=== PATIENT | female | born 1960 | race Asian ===

== ENCOUNTER 2020-01-06 08:23 | Outpatient (CLI) | payer BC, SELFPAY ==
--- NOTE | ~2020-01-06 | MM_ITS ---
EXAMINATION: MM screening [facility] BI w kristian HISTORY: Screening mammogram TECHNIQUE: Craniocaudal and mediolateral oblique 3-D tomosynthesis images were obtained and synthetic 2-D images were generated. CAD analysis was submitted and interpreted. COMPARISON: Comparison to multiple prior studies sequentially, with oldest reviewed study dated 05/15. BREAST PARENCHYMAL COMPOSITION: There are scattered areas of fibroglandular density. FINDINGS: There is no evidence of suspicious mass, calcification, or architectural distortion to sugg est malignancy in either breast. There has been no suspicious interval change. IMPRESSION: 1. No mammographic evidence of malignancy. 2. Recommend routine screening mammography in one year. BI-RADS Category 1: Negative Reviewed, dictated and finalized at location A.
== END 2020-01-06 08:24 | disposition home or self-care (01) ==
LOC: ANHIMG 08:25
PROVIDERS: PCP Family Medicine; Visit Provider Family Medicine
DX: Z12.31 Encounter for screening mammogram for malignant neoplasm of breast (principal)
CPT/HCPCS: 77063; 77067

== ENCOUNTER → 2020-12-15 01:26 | Outpatient (CLI) | payer BC, SELFPAY ==
[2020-12-15 19:42] LABS: SARS-CoV-2 RNA PCR Negative
== END ==
PROVIDERS: PCP Family Medicine; Visit Provider Internal Medicine Gastroenterology
DX: Z01.812 Encounter for preprocedural laboratory examination (principal); Z20.822 Contact with and (suspected) exposure to COVID-19
CPT/HCPCS: C9803; U0003; U0005

== ENCOUNTER 2020-12-18 02:39 | Day surgery (SDC) | payer BC, SELFPAY ==
[2020-12-04 13:14] VITALS: BMI 22.4
[2020-12-18 07:12] VITALS: BP 151/68; PULSE 80; RESP 20; TEMP 36.8; O2SAT 100
[2020-12-18] MEDS: LACTATED RINGERS 1,000 ML 150 ML IV CONT (07:21)
--- NOTE | 2020-12-18 08:03 | WPDANESEPPF ---
Anes - Initial Pre Proc Eval Procedure: Operation Date: 12/18/20 08:30 Proposed Procedures p Screening Colonoscopy - Abhishek Berg MD Date/Time: 12/18/20 08:03 Surgeon: Abhishek Berg MD Pre Op Diagnosis: neoplasm screening Patient Data Age: 59 Gender: F Height: 5 ft 5 in Weight: 63.4 kg Last Vital Signs Temp 98.2 F 12/18/20 07:12 Pulse 80 12/18/20 07:12 Resp 20 12/18/20 07:12 BP 151/68 H 12/18/20 07:12 Pulse Ox 100 12/18/20 07:12 Allergies Allergy/AdvReac Type Severity Reaction Status Date / Time erythromycin base Allergy Severe Hives Verified 12/18/20 07:10 Penicillins Allergy Severe Hives Verified 12/18/20 07:10 ranitidine Allergy Severe swollen Verified 12/18/20 07:10 lips Sulfa (Sulfonamide Allergy Severe Hives Verified 12/18/20 07:10 Antibiotics) aspirin Allergy Intermediate Skin Verified 12/18/20 07:10 Reaction Home Medications Medication Instructions Recorded Confirmed Type hydrochlorothiazide 12.5 mg tablet 12.5 mg PO DAILY #90 tablet 06/28/20 12/18/20 Rx sodium,potassium,mag sulfates 17.5 See Rx Instructions PO .COMPLEX 11/27/20 12/18/20 Rx gram-3.13 gram-1.6 gram oral soln #354 ml atorvastatin 20 mg PO DAILY 12/04/20 12/18/20 History calcium carbonate-vitamin D3 1 tablet PO DAILY 12/04/20 12/18/20 History [Caltrate with Vitamin D3] cholecalciferol (vitamin D3) 25 mcg PO DAILY 12/04/20 12/18/20 History [Vitamin D3] lisinopril 40 mg PO DAILY 12/04/20 12/18/20 History omega-3 fatty acids-vitamin E 2 cap PO DAILY 12/04/20 12/18/20 History [Fish Oil] Patient hx anesthesia problems: none Family hx anesthesia problems: none PMFSH Past Medical History Medical History (Updated 12/18/20 @ 08:03 by Jewel Fink MD) Hyperlipidemia Hypertension Surgical History Surgical History H/O hemorrhoidectomy H/O: hysterectomy History of esophagogastroduodenoscopy (EGD) History of hemicolectomy Family History Family History Other No family history of cardiovascular disease No family history of malignant neoplasm Social History Social History Smoking status: Never smoker Alcohol intake: never Substance use: never Substance use type: does not use Living arrangements: with family Spiritual care concerns: No Anes - Eval Final PreProcedure Day of Procedure 12/18/20 08:03 Patient weight: normal Heart: regular rate and rhythm Lungs: clear to auscultation Airway: Mallampati scale class II Neurological: alert and oriented Last oral intake: >/= 8 hours ASA classification: II Emergent: no Anesthetic plan: proceed Anesthesia type and monitoring: general GIVS and standard monitoring Informed Consent: The patient's anesthetic plan and its attendant risks and benefits were discussed with the patient/family/POA. Questions were solicited and answers provided to the satisfaction of the patient/family/POA.
--- NOTE | 2020-12-18 08:07 | PM.HPGS ---
History of Present Illness History of Present Illness Consent: Risks, benefits, and alternatives have been discussed and questions answered. Patient agrees to proceed with procedure. Chief complaint: neoplasm screening Narrative: Ruy Reed is a 59 year old female with last colonoscopy 2013, had polyp previously Review of Systems Constitutional: Constitutional: Denies headache(s) and Denies weakness Eyes: Eyes: Denies blurry vision ENT: Reports Normal hearing present, Denies headache(s) and Denies neck pain Cardiovascular: Cardiovascular: Denies chest pain and Denies dyspnea Respiratory: Respiratory: Denies dyspnea Gastrointestinal: Gastrointestinal: Reports no additional gastrointestinal complaints Genitourinary: Genitourinary: Denies dysuria Musculoskeletal: Musculoskeletal: Denies neck pain Integumentary/Breasts: Skin/Breast: Denies dry skin Neurologic: Reports Normal hearing present, Denies headache(s) and Denies weakness Psychiatric: Psychiatric: Denies anxiety Endocrine: Endocrine: Denies change in body appearance Hematologic/Lymphatic: Hematologic/Lymphatic: Denies easy bleeding Allergic/Immunologic: Allergic/Immunologic: Denies urticaria PMF Past Medical History Medical History (Updated 12/18/20 @ 08:08 by Abhishek Berg MD) Adenomatous colon polyp Hyperlipidemia Hypertension Surgical History Surgical History H/O hemorrhoidectomy H/O: hysterectomy History of esophagogastroduodenoscopy (EGD) History of hemicolectomy Family History Family History Other No family history of cardiovascular disease No family history of malignant neoplasm Social History Social History Smoking status: Never smoker Alcohol intake: never Substance use: never Substance use type: does not use Living arrangements: with family Spiritual care concerns: No Meds Home Medications and Allergies Home Medications Medication Instructions Recorded Confirmed Type hydrochlorothiazide 12.5 mg tablet 12.5 mg PO DAILY #90 tablet 06/28/20 12/18/20 Rx sodium,potassium,mag sulfates 17.5 See Rx Instructions PO .COMPLEX 11/27/20 12/18/20 Rx gram-3.13 gram-1.6 gram oral soln #354 ml atorvastatin 20 mg PO DAILY 12/04/20 12/18/20 History calcium carbonate-vitamin D3 1 tablet PO DAILY 12/04/20 12/18/20 History [Caltrate with Vitamin D3] cholecalciferol (vitamin D3) 25 mcg PO DAILY 12/04/20 12/18/20 History [Vitamin D3] lisinopril 40 mg PO DAILY 12/04/20 12/18/20 History omega-3 fatty acids-vitamin E 2 cap PO DAILY 12/04/20 12/18/20 History [Fish Oil] Allergies Allergy/AdvReac Type Severity Reaction Status Date / Time erythromycin base Allergy Severe Hives Verified 12/18/20 07:10 Penicillins Allergy Severe Hives Verified 12/18/20 07:10 ranitidine Allergy Severe swollen Verified 12/18/20 07:10 lips Sulfa (Sulfonamide Allergy Severe Hives Verified 12/18/20 07:10 Antibiotics) aspirin Allergy Intermediate Skin Verified 12/18/20 07:10 Reaction Vital Signs Vital Signs - 24 hr 12/18/20 07:12 Temperature 98.2 F Pulse Rate 80 Respiratory Rate 20 Blood Pressure 151/68 H Pulse Oximetry 100 Exam Const: General: comfortable and no acute distress HENMT: General nose exam: Normal nares present Eyes: General: appearance normal, both eyes and all related structures Neck: Neck: no JVD Resp: Auscultation: clear to auscultation bilaterally Cardio: Rate: regular rate Rhythm: regular rhythm GI: Inspection: non-distended GI Palp: Yes Soft to palpation Skin: General skin exam: normal color Neuro: General: gait normal Speech: normal speech Extrem: General: normal to inspection Psych: Mental Status: mental status grossly normal Assessment and Plan Assessment and plan (
[2020-12-18 08:27] VITALS: BP 111/71; PULSE 81; RESP 26; O2SAT 99
[2020-12-18 08:37] VITALS: BP 108/69; PULSE 76; RESP 22; O2SAT 99
[2020-12-18 08:47] VITALS: BP 126/74; PULSE 71; RESP 18; O2SAT 100
== END 2020-12-18 09:00 | disposition home or self-care (01) ==
PROVIDERS: PCP Family Medicine; Visit Provider Internal Medicine Gastroenterology
PROC: 0DJD8ZZ Inspection of Lower Intestinal Tract, Via Natural or Artificial Opening Endoscopic (ICD-10-PCS; CPT 45378; principal; 2020-12-18 08:30)
DX: Z12.11 Encounter for screening for malignant neoplasm of colon (principal); K63.5 Polyp of colon; I10 Essential (primary) hypertension; E78.5 Hyperlipidemia, unspecified
CPT/HCPCS: 45380; 88305; J2704; J7120

== ENCOUNTER 2021-02-01 07:55 | Outpatient (CLI) | payer BC, SELFPAY ==
--- NOTE | ~2021-02-01 | MM_ITS ---
EXAMINATION: MM screening [facility] BI w kristian HISTORY: Screening TECHNIQUE: Craniocaudal and mediolateral oblique 3-D tomosynthesis images were obtained and synthetic 2-D images were generated. CAD analysis was submitted and interpreted. COMPARISON: Comparison to multiple prior studies sequentially, with oldest reviewed study dated 07/20. BREAST PARENCHYMAL COMPOSITION: There are scattered areas of fibroglandular density. FINDINGS: There is no evidence of suspicious mass, calcification, or architectural distortion to sugg est malignancy in either breast. There has been no suspicious interval change. IMPRESSION: 1. No mammographic evidence of malignancy. 2. Recommend routine screening mammography in one year. BI-RADS Category 1: Negative Reviewed, dictated and finalized at location A.
== END 2021-02-01 07:56 | disposition home or self-care (01) ==
PROVIDERS: PCP Family Medicine; Visit Provider Obstetrics & Gynecology
DX: Z12.31 Encounter for screening mammogram for malignant neoplasm of breast (principal)
CPT/HCPCS: 77063; 77067

== ENCOUNTER 2022-02-25 07:34 | Outpatient (CLI) | payer BC, SELFPAY ==
--- NOTE | ~2022-02-25 | MM_ITS ---
EXAMINATION: MM screening [facility] w kristian HISTORY: Screening TECHNIQUE: Craniocaudal and mediolateral oblique 3-D tomosynthesis images were obtained and synthetic 2-D images were generated. CAD analysis was submitted and interpreted. COMPARISON: Comparison to multiple prior studies sequentially, with oldest reviewed study dated 07/20. BREAST PARENCHYMAL COMPOSITION: There are scattered areas of fibroglandular density. FINDINGS: There is no evidence of suspicious mass, calcification, or architectural distortion to sugg est malignancy in either breast. There has been no suspicious interval change. IMPRESSION: 1. No mammographic evidence of malignancy. 2. Recommend routine screening mammography in one year. BI-RADS Category 1: Negative Reviewed, dictated and finalized at location A.
== END 2022-02-25 07:35 | disposition home or self-care (01) ==
PROVIDERS: PCP Family Medicine; Visit Provider Obstetrics & Gynecology
DX: Z12.31 Encounter for screening mammogram for malignant neoplasm of breast (principal)
CPT/HCPCS: 77063; 77067

== ENCOUNTER → 2023-03-19 09:50 | Outpatient (CLI) | payer BC, SELFPAY ==
--- NOTE | ~2023-03-19 | MM_ITS ---
EXAMINATION: MM screening [facility] BI w kristian HISTORY: Screening mammogram TECHNIQUE: Craniocaudal and mediolateral oblique 3-D tomosynthesis images were obtained and synthetic 2-D images were generated. CAD analysis was submitted and interpreted. COMPARISON: 02/25/2022, 02/01/2021, 01/06/2020 bilateral screening mammogram examinations BREAST PARENCHYMAL COMPOSITION: There are scattered areas of fibroglandular density. FINDINGS: There is an approximately 3.4 mm circumscribed mass in the posterior mid to lower inner rig ht breast; diagnostic right mammogram and right breast ultrasound examination are recommended. Otherwise no suspicious mass or architectural distortion, malignant calcification, skin thickening or retraction or significant new or developing density of either breast is detected. IMPRESSION: 1. 3.4 mm right breast mass 2. Diagnostic right mammogram and right breast ultrasound are recommended. BIRADS Category 0: Incomplete; need additional imaging evaluation Reviewed, dictated and finalized at location A.
== END ==
PROVIDERS: PCP Family Medicine; Visit Provider Obstetrics & Gynecology
DX: Z12.31 Encounter for screening mammogram for malignant neoplasm of breast (principal); R92.8 Other abnormal and inconclusive findings on diagnostic imaging of breast
CPT/HCPCS: 77063; 77067

== ENCOUNTER → 2023-04-09 07:34 | Outpatient (CLI) | payer BC, SELFPAY ==
--- NOTE | ~2023-04-09 | MMUS_ITS ---
EXAMINATION: MM diagnostic [facility] RT w kristian, US breast RT limited HISTORY: 3.4 mm circumscribed mass in right breast reported on 03/19/2023 screening mammogram is TECHNIQUE: Additional 3-D tomosynthesis images of the right breast were performed and synthetic 2-D i mages were generated. CAD analysis was submitted and interpreted. High resolution targeted right nidia st ultrasound was performed. COMPARISON: 03/19/2023, 02/25/2022, 02/01/2021 bilateral screening mammogram examinations FINDINGS: MAMMOGRAPHIC FINDINGS: There is a new rounded approximately 4 mm partially circumscribed mass in the posterior upper inner q uadrant of the right breast since 02/25/2022. ULTRASOUND: 12-1:00 3.5 cm from nipple: There is a mildly irregular hypoechoic incompletely circumscribed approxi mately 3.2 x 3.6 x 4.3 mm hypoechoic lesion. This is a new mass since February 2022 in a postmenopausal pa tient. The irregular margins, incomplete circumcision and the fact this is a new postmenopausal findi ng make this a suspicious lesion. Ultrasound-guided biopsy is recommended. IMPRESSION: 1. New suspicious 4.3 mm hypoechoic incompletely circumscribed mildly irregular mass at 12-1:00 3.5 c m from nipple in postmenopausal patient 2. Ultrasound-guided biopsy of 12-1:00 lesion is recommended BI-RADS category 4, suspicious findings. On 04/09/[address] Vera telephoned the report and ultrasound-guided biopsy recommendation to Leanne Denny. Reviewed, dictated and finalized at location A. IMPRESSION: 1. New suspicious 4.3 mm hypoechoic incompletely circumscribed mildly irregular mass at 12-1:00 3.5 cm from nipple in postmenopausal patient 2. Ultrasound-guided biopsy of 12-1:00 lesion is recommended BI-RADS category 4, suspicious findings. On 04/09/[address] Vera telephoned the report and ultrasound-guided biopsy recommendation to Denisha, Comb Capper. IMPRESSION: 1. New suspicious 4.3 mm hypoechoic incompletely circumscribed mildly irregular mass at 12-1:00 3.5 cm from nipple in postmenopausal patient 2. Ultrasound-guided biopsy of 12-1:00 lesion is recommended BI-RADS category 4, suspicious findings. On 04/09/[address] Vera telephoned the report and ultrasound-guided biopsy recommendation to Denisha Comb Capper.
== END ==
PROVIDERS: PCP Obstetrics & Gynecology; Visit Provider Obstetrics & Gynecology
DX: R92.8 Other abnormal and inconclusive findings on diagnostic imaging of breast (principal)
CPT/HCPCS: 76642; 77061; 77065; G0279

== ENCOUNTER 2023-05-08 09:18 | Outpatient (CLI) | payer BC, SELFPAY ==
--- NOTE | ~2023-05-08 | US_ITS ---
US breast RT limited 05/08/2023 10:03 Indication: Mass seen on prior examination. Biopsy requested. Procedure: High-resolution Limited ultrasound of the right breast. Dr. Gage was present during the ex amination. Comparison: 04/09/2023 Findings: At 12:00, 3.5 cm from the nipple there is an oval circumscribed parallel oriented hypoechoi c mass measuring 4 mm without internal vascularity or posterior features. Sonographic characteristics are most likely benign complicated cyst. Biopsy was canceled following discussion of findings with t he patient and short-term follow-up ultrasound is recommended. Impression: 1: Probable benign 4 mm right breast cyst at 12:00, 3.5 cm from the nipple. Six-month follow-up Limit ed right breast ultrasound recommended. BI-RADS CATEGORY 3-PROBABLY BENIGN FINDING RECOMMENDATION: 6 month follow up recommended. Reviewed, dictated and finalized at location A. Impression: 1: Probable benign 4 mm right breast cyst at 12:00, 3.5 cm from the nipple. Six -month follow-up Limited right breast ultrasound recommended. BI-RADS CATEGORY 3-PROBABLY BENIGN FINDING RECOMMENDATION: 6 month follow up recommended.
== END 2023-05-08 09:19 | disposition home or self-care (01) ==
PROVIDERS: PCP Family Medicine; Visit Provider Surgery
DX: R92.8 Other abnormal and inconclusive findings on diagnostic imaging of breast (principal); N60.01 Solitary cyst of right breast
CPT/HCPCS: 76642

== ENCOUNTER → 2023-11-19 09:02 | Outpatient (CLI) | payer BC, SELFPAY ==
--- NOTE | ~2023-11-19 | US_ITS ---
US breast RT limited INDICATION: Follow-up right breast cyst TECHNIQUE: Dedicated Limited right breast ultrasound COMPARISON: Comparison to multiple prior studies sequentially, with oldest reviewed study dated 04/09. FINDINGS: The right breast is composed of normal heterogeneous echotexture without focal solid or cys tic mass. Interval resolution of 4 mm right breast cysts. IMPRESSION: 1: Normal limited right breast ultrasound. Routine yearly screening mammogram and regular clinical breast examination are recommended. BI-RADS CATEGORY 1 - NEGATIVE Reviewed, dictated and finalized at location A. [employer]
== END ==
PROVIDERS: PCP Obstetrics & Gynecology; Visit Provider Family Medicine
DX: R92.8 Other abnormal and inconclusive findings on diagnostic imaging of breast (principal)
CPT/HCPCS: 76642

== ENCOUNTER 2024-04-18 10:01 | Outpatient (CLI) | payer BC, SELFPAY ==
--- NOTE | ~2024-04-18 | MM_ITS ---
EXAMINATION: MM screening [facility] BI w kristian HISTORY: Screening mammogram TECHNIQUE: Craniocaudal and mediolateral oblique 3-D tomosynthesis images were obtained and synthetic 2-D images were generated. CAD analysis was submitted and interpreted. COMPARISON: 04/09/2023, 03/19/2023, 02/25/2022, 02/01/2021 BREAST PARENCHYMAL COMPOSITION:Not Dense. There are scattered areas of fibroglandular density. FINDINGS: No suspicious mass, calcification, or architectural distortion are identified in either tenisha ast to suggest malignancy. There has been no suspicious interval change. IMPRESSION: No mammographic evidence of malignancy. Recommend routine screening mammography in one year. BI-RADS Category 1: Negative Reviewed, dictated and finalized at location .
== END 2024-04-18 10:02 | disposition home or self-care (01) ==
LOC: ANHIMG 10:03
PROVIDERS: PCP Obstetrics & Gynecology; Visit Provider Obstetrics & Gynecology
DX: Z12.31 Encounter for screening mammogram for malignant neoplasm of breast (principal)
CPT/HCPCS: 77063; 77067

== ENCOUNTER 2025-06-16 08:44 | Outpatient (CLI) | payer BC, SELFPAY ==
--- NOTE | ~2025-06-16 | MM_ITS ---
EXAMINATION: screening [facility] BI w kristian INDICATION: Asymptomatic, referred for screening mammogram COMPARISON: 04/18/2024 through 01/06/2020 TECHNIQUE: Digital Breast Tomosynthesis CC, MLO views of Both breasts were obtained with computer-aided detection to assist in interpretation of the study. FINDINGS: There are scattered areas of fibroglandular density. There is an asymmetry seen on the cc view in the Lateral right breast at anterior third. Elsewhere, there are no mammographic features of malignancy. IMPRESSION: 1. Right breast Asymmetry. 2. No evidence of malignancy in the Left breast. RECOMMENDATION: Right breast Diagnostic mammogram with true lateral, appropriate spot compression views and an ultrasound if needed. BI-RADS Category 0: Incomplete: Needs additional imaging evaluation. Reviewed, dictated and finalized at location B. IMPRESSION: 1. Right breast Asymmetry. 2. No evidence of malignancy in the Left breast. RECOMMENDATION: Right breast Diagnostic mammogram with true lateral, appropriate spot compressi on views and an ultrasound if needed. BI-RADS Category 0: Incomplete: Needs additional imaging evaluation.
--- OUTSIDE RECORDS SUMMARY | 2025-06-16 08:50 | XMS_ITS | Encounter Summary ---
Author Organization [facility] [employer] of [facility] Address [address] [place] [address] Phone Care Team Providers Care Lithoduplicator Operator Name Role Phone Gabby Cochran MD Primary Care Provider + Encounter Details Date Type Department Care Team (Latest Contact Info) Description 05/17/2024 Orders Only [facility] Scanning, Provider Social History Tobacco Use Types Packs/Day Years Used Date Smoking Tobacco: Never Smokeless Tobacco: Never Alcohol Use Standard Drinks/Week Comments No 0 (1 standard drink = 0.6 oz pur e alcohol) AUDIT-C Answer Date Recorded Q1: How often do you have a drink containing alc ohol? Never 12/04/2023 Average Number of Drinks Not on file 024 Frequency of Binge Drinking Not on file 11/19 Comments No Sex and Gender Information Value Date Recorded Sex Assigned at Not on file Legal Sex Female 8:28 PM REHAB [employer]ID Gender Identity Not on file Sexual Orientation Not on file Occupation Industry Job Start Date Job End Date homemaker Not on file Not on file Not on file documented as of this encounter Plan of Treatment Not on file documented as of this encounter Goals Goal Patient Goal Type Associated Problems Recent Progress Patient-Stated? Author CCM Chronic Pain Care Plan Chronic Care Management Yes Kamini Gallgaher RN Note: Problem: Chronic Pain Goals: 1. Minimize further functional decline 2. Maximize quality of life 3. Control pain Strategies: - Activity/exercise program recommendation - Conservative stepwise pain medicine strategy with multi-disciplinary approach - Recommend healthy lifestyle strategies and compensatory methods as needed Reduce the likelihood of falling Lifestyle No Hardeep hernandez, Sunshine Palacio RN Note: Below are four things you can do to prevent falls: Begin an exercise program to improve your leg strength & balance Ask your doctor or pharmacist to review your medicines Get annual eye check-ups & update your eyeglasses Make your home safer by: Removing clutter & tripping hazards Putting railings on all stairs & adding grab bars in the bathroom Having good lighting, especially on stairs Contact your local community or [facility] for information on exercise, fall prevention programs, or options for improving home safety. documented as of this encounter Procedures Procedure Name Priority Date/Time Associated Diagnosis Comments SCAN - LABS 05/17/2024 documented in this encounter Results * SCAN - LABS (05/17/2024) us Provider Scanning Final Result documented in this encounter Visit Diagnoses Not on filedocumented in this encounter Care Teams Lithoduplicator Operator Relationship Specialty Start Date End Date Gabby Cochran MD [address] [place] [id number] PCP - General Family Medicine 06/15/23 documented as of this encounter
--- OUTSIDE RECORDS SUMMARY | 2025-06-16 08:50 | XMS_ITS | Encounter Summary ---
Author Organization [facility] Healthcare Address [address] [place] [address] Care Team Providers Care Fountain Server Name Role Phone Gabby Cochran MD Primary Care Provider + Reason for Visit * Reason Onset Date Comments Scheduling Appointments 06/29/202406/29 LVM for patient to call back to schedule. 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 Minimize further functional decline 2. Maximize quality of life 3. Control pain Strategies: - Activity/exercise program recommendation - Conservative stepwise pain medicine strategy with multi-disciplinary approach - Recommend healthy lifestyle strategies and compensatory methods as needed Reduce the likelihood of falling Lifestyle No Sunshine Ng RN Note: Below are four things you [...] on stairs Contact your local community or [facility] for information on exercise, fall prevention programs, or options for improving home safety. documented as of this encounter Visit Diagnoses Not on filedocumented in this encounter Care Teams Fountain Server Relationship Specialty Start Date End Date Gabby Cochran MD [address] [place] [address] [address] [place] [id number] PCP - General Family Medicine 06/15/23 documented as of this encounter
--- OUTSIDE RECORDS SUMMARY | 2025-06-16 08:50 | XMS_ITS | Clinical Summary ---
Author Organization [facility] Address [address] [id number] Care Team Providers Care Classroom Technology Coach Name Role Phone Gabby Cochran MD Primary Care Provider + Allergies Active Allergy Reactions Criticality Noted Date Comments Aspirin Rash,Hives Medium 04/13/2012 aspirin Erythromycin Rash Medium 04/13/2012 Other reaction(s): Not available Penicillins Rash,Other (See comments) Medium 04/13/2012 Other reaction(s): Not available Sulfa (Sulfonamide Antibiotics) Rash Medium 04/13/2012 Other reaction(s): Not available Penicillin V Potassium Rash Medium 04/13/2012 Medications atorvastatin (LIPITOR) 80 mg tablet Take 1 tablet (80 mg total) by mouth nightly Active calcium carbonate-vitami n D3 1,500 mg (600mg elemental) -800 unit per tablet Take 1 tablet by mouth every morning Active cholecalciferol (VITAMIN D-3) 1,000 unit tablet Take 1 tablet (1,000 Units total) by mouth every morning Active hydroCHLOROthiaz andres (HYDRODIURIL) 12.5 mg tablet Take 1 tablet (12.5 mg total) by mouth every morning 12/19/19 21 Active lisinopriL (PRINIVIL,ZESTRI L) 40 mg tablet Take 1 tablet (40 mg total) by mouth every morning 11/27/19 21 Active omega 0-cgz-rho-fish oil 1,000 mg (120 mg-180 mg) capsule Take by mouth every morning Active MULTIVITAMIN ORAL Take by mouth every morning Active clobetasoL (TEMOVATE) 0.05 % cream 04/17/20 23 Active erythromycin (ILOTYCIN) ophthalmic ointment APPLY 1 CM RIBBON TO EYELID TWICE DAILY FOR 7 DAYS 10/28/19 24 Active fexofenadine (VÍCTOR) 180 mg tablet TAKE 1 TABLET BY MOUTH BURGLAR ALARM OPERATOR BEFORE BREAKFAST 90 tablet 1 06/08/20 24 Active cetirizine (ZyrTEC) 10 mg tablet TAKE 1 TABLET BY MOUTH EVERY DAY AT NIGHT 90 tablet 1 06/08/20 24 Active terbinafine (LamISIL) 1 % cream APPLY TO THE AFFECTED AND SURROUNDING AREAS OF SKIN BY TOPICAL ROUTE ONCE DAILY 10/28/19 24 Active pregabalin (LYRICA) 100 mg capsuleIndicatio ns:Lumbar radiculopathy Take 1 capsule (100 mg total) by mouth 3 (three) times a day 90 capsule 2 05/29/20 25 Active montelukast (SINGULAIR) 10 mg tablet TAKE 1 TABLET BY MOUTH EVERY DAY 30 tablet 06/05/20 25 Active famotidine (PEPCID) 20 mg tablet TAKE 1 TABLET BY MOUTH TWICE A DAY. PLEASE MAKE AN APPT FOR FURTHER REFILLS 60 tablet 06/05/20 25 Active pregabalin (LYRICA) 100 mg capsuleIndicatio ns:Lumbar radiculopathy Take 1 capsule (100 mg total) by mouth 3 (three) times a day 90 capsule 2 02/29/20 25 2024 Discontinued montelukast (SINGULAIR) 10 mg tablet TAKE 1 TABLET BY MOUTH EVERY DAY 30 tablet 05/12/20 25 2024 Discontinued famotidine (PEPCID) 20 mg tablet TAKE 1 TABLET BY MOUTH TWICE A DAY 60 tablet 05/12/20 25 2024 Discontinued Active Problems Problem Noted Date Diagnosed Date Hordeolum externum of left upper eyelid 04/07/20 23 08/04/2023 Rash 03/09/2023 08/04/2023 Vitamin D deficiency 03/09/2023 08/04/2023 Essential hypertension 09/03/2022 Hyperlipidemia 09/03/2022 Osteopenia 09/03/2022 Prediabetes 09/03/2022 Degeneration of cervical intervertebral disc 08/04/2023 Degeneration of lumbar intervertebral disc 09/0208/04/2023 Cervical disc disorder with radiculopathy of mid-cervical region 06/11/2022 Overview (06/11/2022): Added automatically from request for surgery [id number] Benign colon polyp 07/13/2019 Overview (07/13/2019): Added automatically from request for surgery [id number] Chronic pain 11/25/2016 Paresis of single lower extremity 10/29/2016 Pain of lower extremity 10/27/2016 Herniated lumbar intervertebral disc 05/14/2015 Lumbar radiculopathy 05/09/2015 History of adenomatous polyp of colon 06/27/2014 Right upper quadrant abdominal pain 12/23/2012 Immunizations Immunization Administration Dates Next Due Influenza, Quadrivalent, Rec ombinant, Egg Free, Preservative Free, Intramuscular 07/12/2019 Influenza, Quadrivalent, Spl it, Preservative Free, Intramuscular 06/08/2021,07/06/2020,06/28/2018 Influenza, Trivalent, Preser vative Free, Intramuscular 07/19/2017,07/19/2016,08/14/2014 fl3ur (J&J) SARS-CoV-2 Vaccination 12/21/2020 Pneumococcal Conjugate Pcv21 12/09/2024 Surgical History Surgery Date Site/Laterality Comments IR FINE NEEDLE ASPIRATION W IMAGE GUIDANCE 03/06/2014 N/A CHOLECYSTECTOMY HYSTERECTOMY SPINE SURGERY Medical History Medical History Date Comments Hyperlipidemia Hypertension Low back pain Chronic pain disorder Tuberculosis Family History Medical History Relation Name Comments Cancer Other Diabetes Other Heart attack Other Heart disease Other Hypertension Other Anesthesia problems Neg Hx Relation Name Status Comments Other Social History Tobacco Use Types Packs/Day Years Used Date Smoking Tobacco: Never Smokeless Tobacco: Never Tobacco Cessation:Counseling Given: Not Answered Alcohol Use Standard Drinks/Week Comments No 0 (1 standard drink = 0.6 oz pur e alcohol) AUDIT-C Answer Date Recorded Q1: How often do you have a drink containing alcohol? Never 07/19/2024 Q2: How many drinks containi ng alcohol do you have on a typical day when you are drinking? Patient does not drink Q3: How often do you have si x or more drinks on one occasion? 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 Gender Identity Not on file Sexual Orientation Not on file Occupation Industry Job Start Date Job End Date homemaker Not on file Not on file Not on file Obstetrics History Last Filed Vital Signs Vital Sign Reading Time Taken Comments Blood Pressure 149/73 07/19/2024 11:09 AM CDT Pulse 74 07/19/2024 11:09 AM CDT Temperature 36.2 C (97.2 F) 07/19/2024 9:53 AM CDT Respiratory Rate 16 07/19/2024 11:09 AM CDT Oxygen Saturation 96% 07/19/2024 11:09 AM CDT Inhaled Oxygen Concentration - - Weight 63.5 kg (140 lb) 01/23/2025 10:56 AM CDT Height 165.1 cm (5' 5) 01/23/2025 10:56 AM CDT Body Mass Index 23.3 01/23/2025 10:56 AM CDT Plan of Treatment Health Maintenance Due Date Last Done Comments Breast Cancer Screening-Mammogram 1960 Depression Screening 1960 Hepatitis C Screening 1960 DTaP/Tdap/Td Vaccine (1 - Tdap) 12/31/1971 Hepatitis B Screening 1978 Regular Well Visit/Exam 18-64 1978 Zoster Vaccine (1 of 2) 2010 Covid-19 Vaccine (4 - season) 2024 02/19/2022, 08/16/2021, 12/21/2020 Colon Cancer Screening-Colonoscopy 07/24/2024 07/24/2014 Influenza Vaccine (#1) 2025 3, 06/08/2021, 07/06/2020, Additional history exists Colon Cancer Screening-CT Colonography Discontinued 07/24/2014 Colon Cancer Screening-DNA Stool Discontinued 07/24/2014 Colon Cancer Screening-FIT Discontinued 07/24/2014 Colon Cancer Screening-Sigmoidoscopy Discontinued 07/24/2014 Pneumococcal vaccine <65 Aged Out 12/09/2024 No longer eligible based on patient's age to complete this topic Goals Goal Patient Goal Type Associated Problems [...] needed Reduce the likelihood of falling Lifestyle Sunshine Lorenzo RN Note: Below are four things you [...] on stairs Contact your local community or [facility] for information on exercise, fall prevention programs, or options for improving home safety. Medical Devices Implanted Type Area Cathode Washer Device Identifier Shelf Expiration Date Model / Serial / Lot [employer] Putty 1cc I-Factor Bone 700-010 - [id number] Implanted:Qty: 1 on 07/07/2022 by Rogers Raygoza MD at [facility] N/A: Spine Cervical [employer] 01/16/2025 700-010 / / [id number] [employer] Modulus [id number] Cervical 7d Cage Spinal Sterile Latex Free [id number] - [id number] Implanted:Qty: 1 on 07/07/2022 by Rogers Raygoza MD at [facility] N/A: Spine Cervical [employer] [id number] 11/24/2026 [id number] / / [id number] [employer] Maxan 8mm 1 Level Spine Plate Bone Green [id number] - [id number] Implanted:Qty: 1 on 07/07/2022 by Rogers Raygoza MD at [facility] N/A: Spine Cervical [employer] [id number] / / [employer] Maxan 4mm 14mm Variable Angle Self Drill Spine Screw Bone [id number] - [id number] Implanted:Qty: 4 on 07/07/2022 by Rogers Raygoza MD at [facility] N/A: Spine Cervical [employer] [id number] / / Procedures Procedure Name Priority Date/Time Associated Diagnosis Comments COLONOSCOPY REPORT 07/24/2014 from Last 3 Months or Most Recently Relevant to Health Maintenance Results * COLONOSCOPY REPORT (07/24/2014) Anatomical Region Laterality Modality Other Narrative 07/24/2014 Ordered by an unspecified provider. us Historical Provider GI PROCEDURE ORDERABLES F inal Result from Last 3 Months or Most Recently Relevant to Health Maintenance Insurance [employer] ACCESS CHOICE [place]ESS CHOICE [place] [employer] [place] Advance Directives For more information, please contact: [phone] * Full Code (Latest Code Status on File) Date Activated Date Inactivated Comments 07/08/2018 10:02 AM 07/09/2018 2:33 AM Care Teams Classroom Technology Coach Relationship Specialty Start Date End Date Gabby Cochran MD [address] [address] PCP - General Family Medicine 06/15/23
== END 2025-06-16 08:45 | disposition home or self-care (01) ==
LOC: ANHFOHIMG 08:46
PROVIDERS: PCP Family Medicine; Visit Provider Obstetrics & Gynecology
DX: Z12.31 Encounter for screening mammogram for malignant neoplasm of breast (principal); R92.8 Other abnormal and inconclusive findings on diagnostic imaging of breast
CPT/HCPCS: 77063; 77067

== ENCOUNTER 2025-07-26 10:58 | Outpatient (CLI) | payer BC, SELFPAY ==
--- NOTE | ~2025-07-26 | MMUS_ITS ---
EXAMINATION: MM diagnostic nanci RT w kristian, US breast RT limited INDICATION: 64-year old female; BI-RADS 0, right breast asymmetry. COMPARISON: 06/16/2025 TECHNIQUE: Digital breast tomosynthesis True lateral and spot compression CC and MLO views of the RIGHT breast were obtained with computer-aided detection to assist in interpretation of the study. FINDINGS: There are scattered areas of fibroglandular density. The asymmetry of concern in the Lateral right breast persists as a circumscribed bilobed mass. Ultrasound was performed for further evaluation. RIGHT BREAST ULTRASOUND FINDINGS: Targeted evaluation of the area of concern was completed. There is a 0.3 x 0.5 x 0.2 cm anechoic circumscribed mass at 9:00 location near the nipple in the RIGHT breast that correlates to the area of Mammographic finding. IMPRESSION: Benign RIGHT breast cyst correlates to mammographic finding. No further investigation necessary. RECOMMENDATION: ANNUAL SCREENING BILATERAL MAMMOGRAPHY BI-RADS 2, BENIGN Reviewed, dictated and finalized at location B. IMPRESSION: Benign RIGHT breast cyst correlates to mammographic finding. No further investi gation necessary. RECOMMENDATION: ANNUAL SCREENING BILATERAL MAMMOGRAPHY BI-RADS 2, BENIGN
== END 2025-07-26 10:59 | disposition home or self-care (01) ==
LOC: ANHFOHIMG 10:58
PROVIDERS: PCP Family Medicine; Visit Provider Obstetrics & Gynecology
DX: R92.8 Other abnormal and inconclusive findings on diagnostic imaging of breast (principal); N60.01 Solitary cyst of right breast
CPT/HCPCS: 76642; 77061; 77065; G0279